=== PATIENT | female | born 1930 | race Caucasian/White ===

== ENCOUNTER 2020-05-11 13:08 | Inpatient (IN) | payer OTHER ==
[~2020-05-11] VITALS: Ht 162.6 cm; Wt 59.4 kg
[~2020-05-11 13:08] MED LIST: FLEXERIL PO; NOHOMEMEDICATIONS; VICODIN 5-5001 EACH PO
[2020-05-11 13:14] VITALS: BP 133/75
[2020-05-11] MEDS ORDERED: LISINOPRIL2.5 MG PO (13:24)
[2020-05-11 13:36] LABS: ABSOLUTE BASOPHILS 0.1 thou/uL (0.0-0.2); ABSOLUTE EOSINOPHILS 0.3 thou/uL (0.0-0.7); ABSOLUTE LYMPHOCYTES 2.5 thou/uL (0.8-5.3); ABSOLUTE MONOCYTES 0.6 thou/uL (0.0-1.2); ABSOLUTE NEUTROPHILS 2.7 thou/uL (1.6-8.1); EOSINOPHILS 4.6 %; HEMATOCRIT 41.9 % (37.0-47.0); HEMOGLOBIN 14.1 gm/dL (12.0-15.0); LYMPHOCYTES 40.2 %; MCH 29.8 pg (26.0-34.0); MCHC 33.6 g/dL (28.0-37.0); MCV 88.7 fL (80.0-100.0); MONOCYTES 10.2 %; MPV 7.5 fl. (7.2-11.1); NUCLEATED RBCS 0 /100WBC; PLATELET COUNT* 281 thou/uL (150-400); RBC 4.72 mil/uL (4.20-5.00); RDW-CV 14.6 % (10.5-14.5); WBC 6.2 thou/uL (4.0-11.0)
[2020-05-11 13:45] LABS: ANION GAP 9 mmol/L (7-16); BUN 13 mg/dL (7-18); CALCIUM 8.9 mg/dL (8.5-10.1); CHLORIDE 99 mmol/L (98-107); CO2 30 mmol/L (21-32); CREATININE 0.8 mg/dL (0.6-1.3); GLUCOSE 104 mg/dL (70-99); POTASSIUM 3.6 mmol/L (3.5-5.1); PROTIME 10.4 Seconds (9.20-11.50); SODIUM 138 mmol/L (136-145)
[2020-05-11 13:50] LABS: ALBUMIN 3.7 g/dL (3.4-5.0); ALKALINE PHOSPHATASE 74 U/L (46-116); CHOLESTEROL 232 mg/dL (<200); HDL CHOLESTEROL 71 mg/dL (>40); LDL CHOLESTEROL 134 mg/dL (<100); MAGNESIUM 2.1 mg/dL (1.8-2.4); SGOT 20 U/L (15-37); SGPT 19 U/L (30-65); TC:HDL 3.3 Ratio (Not establshd); TOTAL BILIRUBIN 0.6 mg/dL (<0.1-1.0); TOTAL PROTEIN 7.3 g/dL (6.4-8.2); TRIGLYCERIDE 135 mg/dL (<150); VLDL 27 mg/dL (<40)
--- NOTE | 2020-05-11 13:51 | EKG ---
[place] [address] ELECTROCARDIOGRAM REPORT Name: SWAPNA ACUNA Room: [facility]#: [id number] Admission: 05/11/20 Attend Phys: Discharge: Date of : [birth year] Date of Service: 05/11/20 1315 Report #: [id number] THIS REPORT FOR: //name// [facility] ED Test Date: 2020-05-11 Test Time: 13:15:52 Pat Name: SWAPNA ACUNA Department: Room: Gender: [employer] Operator: : [id number] Requested By: Mavis Strickland Order Number: [id number] MD: Americo Lawrence Measurements Intervals [place] Rate: 101 P: 60 [place]: 205 QRS: -48 QRSD: 122 T: 119 QT: 351 QTc: 455 Interpretive Statements Sinus tachycardia Atrial premature complex Left atrial enlargement Left bundle branch block left axis Baseline wander in lead(s) II,III,aVF,V2 No previous ECG available for comparison Electronically Signed On 05-11-2020 13:51:16 CDT by Americo Lawrence [email or web address] <ELECTRONICALLY SIGNED> By: Americo Lawrence MD, FACC 05/11/20 1351 1315 1315 Americo Lawrence MD, [facility] /EPI
[2020-05-11 14:05] LABS: SERUM ASSESSMENT Clear
[2020-05-11 17:19] VITALS: BP 134/77
[2020-05-11 17:35] VITALS: BP 134/67
[2020-05-11] MEDS ORDERED: VYZULTA5 ML OPHTHALMIC (19:03)
[2020-05-11] MEDS ORDERED: NORVASC5 M1 PO (19:08)
[2020-05-11] MEDS ORDERED: ASPIRIN EC81 M1 PO (19:09)
[2020-05-11] MEDS ORDERED: GAVISCON LIQUI355 ML PO (19:11)
[2020-05-11] MEDS ORDERED: EYE DROP TEARS15 ML EA. EYE (19:14)
[2020-05-12 00:55] VITALS: BP 112/52
[2020-05-12 01:17] LABS: URINE BILIRUBIN NEGATIVE (Negative); URINE BLOOD TRACE (Negative); URINE CLARITY CLEAR; URINE COLOR YELLOW; URINE GLUCOSE-RANDOM NEGATIVE (Negative); URINE KETONES NEGATIVE (Negative); URINE LEUKOCYTES-REFLEX NEGATIVE (Negative); URINE NITRITE-REFLEX NEGATIVE (Negative); URINE PROTEIN NEGATIVE (Negative); URINE SPECIFIC GRAVITY 1.025 (1.005-1.030); URINE UROBILINOGEN 0.2 E.U./dl (0.2-1.0)
[2020-05-12 04:00] VITALS: BP 110/56
[2020-05-12 04:33] LABS: HEMATOCRIT 37.2 % (37.0-47.0); HEMOGLOBIN 12.4 gm/dL (12.0-15.0); MCH 29.7 pg (26.0-34.0); MCHC 33.4 g/dL (28.0-37.0); MPV 7.4 fl. (7.2-11.1); RBC 4.18 mil/uL (4.20-5.00); RDW-CV 14.7 % (10.5-14.5); WBC 6.1 thou/uL (4.0-11.0)
[2020-05-12 04:48] LABS: ANION GAP 6 mmol/L (7-16); BUN 8 mg/dL (7-18); CALCIUM 8.4 mg/dL (8.5-10.1); CHLORIDE 103 mmol/L (98-107); CO2 31 mmol/L (21-32); CREATININE 0.7 mg/dL (0.6-1.3); GLUCOSE 88 mg/dL (70-99); POTASSIUM 4.1 mmol/L (3.5-5.1); SODIUM 140 mmol/L (136-145); TROPONIN-I LEVEL <0.06 ng/mL (<0.06)
[2020-05-12 12:00] VITALS: BP 125/64
--- NOTE | 2020-05-12 12:18 | 2DMMODE ---
[place] [address] 2 D/M-MODE ECHOCARDIOGRAM Name: SWAPNA ACUNA Room: [address] [place] .R.#: [id number] Admission: 05/12/20 Attend Phys: Dottie Camp, Discharge: Date of : [birth year] Date of Service: 05/12/20 1218 Report #: [id number] THIS REPORT FOR: cc: Carrie Hendricks MD, Sarah Beth MD Blick,Americo Parks MD [facility] ~ APPROVED REPORT Study performed: 05/12/2020 10:23:35 EXAM: Comprehensive 2D, Doppler, and color-flow Echocardiogram Patient Location: Bedside BSA: 1.57 HR: 55 bpm BP: 110/56 mmHg Other Information Study Quality: Good Indications Chest Pain 2D Dimensions IVSd: 11.53 (7-11mm) LVOT Diam: 25.62 (18-24mm) LVDd: 39.39 mm PWd: 10.00 (7-11mm) Ascending Ao: 30.64 (22-36mm) LVDs: 32.24 (25-40mm) Aortic Root: 27.45 mm Volumes Left Atrial Volume (Systole) LA ESV Index: 35.20 mL/m2 Aortic Valve AoV Peak Héctor.: 1.32 m/s AO Peak Gr.: 7.01 mmHg LVOT Max P.75 mmHg AO Mean Gr.: 3.72 mmHg LVOT Mean P.88 mmHg LVOT Max V: 0.97 m/s AO V2 VTI: 27.15 cm LVOT Mean V: 0.63 m/s PEE (VTI): 3.48 cm2 LVOT V1 VTI: 18.34 cm Mitral Valve E/A Ratio: 0.86 [place] [address] 2 D/M-MODE ECHOCARDIOGRAM Name: SWAPNA ACUNA Room: [address] [place] [facility]#: [id number] Admission: 05/12/20 Attend Phys: Dottie Camp, Discharge: Date of : [birth year] Date of Service: 05/12/20 1218 Report #: [id number] Decel. Time: 132.60 ms MV E Max Héctor.: 0.93 m/s MV PHT: 38.46 ms MVA (PHT): 5.72 cm2 TDI E/Lateral E': 7.75 E/Medial E': 13.29 Medial E' Héctor.: 0.07 m/s Lateral E' Héctor.: 0.12 m/s Pulmonary Valve PV Peak Héctor.: 0.79 m/s PV Peak Gr.: 2.52 mmHg Tricuspid Valve RAP Estimate: 5.00 mmHg TR Peak Gr.: 37.15 mmHg RVSP: 42.15 mmHg PA Pressure: 42.15 mmHg Left Ventricle The left ventricle is normal size. There is normal LV segmental wall motion. Mild concentric left ventricular hypertrophy. Left ventricular systolic function is normal. The left ventricular ejection fraction is within the normal range. LVEF is 55-60%. Right Ventricle The right ventricle is normal size. The right ventricular systolic function is normal. Atria Left atrium is moderately dilated. The right atrium size is normal. Aortic Valve The Aortic valve is sclerotic. Mild aortic regurgitation. There is no aortic valvular stenosis. Mitral Valve There is mitral annular calcification. The mitral valve is normal in structure. Moderate mitral regurgitation. No evidence of mitral valve stenosis. Tricuspid Valve The tricuspid valve is normal in structure. Mild tricuspid regurgitation. estimated pa pressure 40 mm [place] [address] 2 D/M-MODE ECHOCARDIOGRAM Name: SWAPNA ACUNA Room: [address]#: [id number] Admission: 05/12/20 Attend Phys: Dottie Camp, Discharge: Date of : [birth year] Date of Service: 05/12/20 1218 Report #: [id number] The pulmonary valve is normal in structure. There is no pulmonic valvular regurgitation. Great Vessels The aortic root is normal in size. IVC is normal in size and collapses >50% with inspiration. Pericardium There is no pericardial effusion. <Conclusion> Mild concentric left ventricular hypertrophy. LVEF is 55-60%. Left atrium is moderately dilated. The Aortic valve is sclerotic. Mild aortic regurgitation. Moderate mitral regurgitation. Mild tricuspid regurgitation. estimated pa pressure 40 mm Hg <ELECTRONICALLY SIGNED> By: Americo Lawrence MD, FACC 05/12/20 1218 17 Americo Lawrence MD, FACC /INF
[2020-05-12 16:00] VITALS: BP 134/64
[2020-05-12 21:00] VITALS: BP 92/44
[2020-05-13 00:49] VITALS: BP 118/63
[2020-05-13 04:10] VITALS: BP 107/81
[2020-05-13 06:04] LABS: HEMATOCRIT 37.2 % (37.0-47.0); HEMOGLOBIN 12.6 gm/dL (12.0-15.0); MCH 30.3 pg (26.0-34.0); MCHC 33.9 g/dL (28.0-37.0); MCV 89.2 fL (80.0-100.0); MPV 8.1 fl. (7.2-11.1); RBC 4.17 mil/uL (4.20-5.00); RDW-CV 15.1 % (10.5-14.5); WBC 6.8 thou/uL (4.0-11.0)
[2020-05-13 06:38] LABS: ALBUMIN 3.4 g/dL (3.4-5.0); ALKALINE PHOSPHATASE 61 U/L (46-116); ANION GAP 9 mmol/L (7-16); BUN 6 mg/dL (7-18); CALCIUM 8.9 mg/dL (8.5-10.1); CHLORIDE 102 mmol/L (98-107); CO2 27 mmol/L (21-32); CREATININE 0.6 mg/dL (0.6-1.3); GLUCOSE 88 mg/dL (70-99); MAGNESIUM 1.9 mg/dL (1.8-2.4); POTASSIUM 4.3 mmol/L (3.5-5.1); SGOT 18 U/L (15-37); SGPT 18 U/L (30-65); SODIUM 138 mmol/L (136-145); TOTAL BILIRUBIN 0.5 mg/dL (<0.1-1.0); TROPONIN-I LEVEL <0.06 ng/mL (<0.06)
[2020-05-13 09:02] VITALS: BP 130/61
[2020-05-13] MEDS ORDERED: METOPROLOL TART25 MG PO (09:07)
[2020-05-13] MEDS ORDERED: IMDUR 30 MG TAB30 M1 PO (09:07)
[2020-05-13] MEDS ORDERED: PROTONIX40 M2 PO (09:12)
[2020-05-13 15:08] VITALS: BP 130/61
[2020-05-13 17:10] VITALS: BP 141/65
[2020-05-13 20:00] VITALS: BP 133/65
[2020-05-14 00:45] VITALS: BP 135/64
[2020-05-14 04:00] VITALS: BP 138/68
[2020-05-14 08:00] VITALS: BP 139/80
[2020-05-14 10:24] VITALS: BP 130/61
[2020-05-14 10:40] VITALS: BP 130/61
== END 2020-05-14 11:00 | disposition home health service (06) | DRG 392 ==
LOC: M.ERS 13:08 → M.TBA-ER 15:33 → M.2W 17:28
PROVIDERS: Personal Emergency Response Attendant; ADMIT Internal Medicine; ATTEND Internal Medicine
PROC: 0D718ZZ Dilation of Upper Esophagus, Via Natural or Artificial Opening Endoscopic (ICD-10-PCS; principal; 2020-05-13)
DX: K21.9 Gastro-esophageal reflux disease without esophagitis (principal); K22.2 Esophageal obstruction; Z20.828 Contact with and (suspected) exposure to other viral communicable diseases; I10 Essential (primary) hypertension; M19.90 Unspecified osteoarthritis, unspecified site; E78.5 Hyperlipidemia, unspecified; R13.10 Dysphagia, unspecified; K44.9 Diaphragmatic hernia without obstruction or gangrene; R13.14 Dysphagia, pharyngoesophageal phase; R12 Heartburn; Z79.82 Long term (current) use of aspirin; Z79.899 Other long term (current) drug therapy; Z23 Encounter for immunization